=== PATIENT | male | born 1955 | race Caucasian/White ===

== ENCOUNTER 2024-06-15 08:03 | Outpatient (OUT) | payer MEDICARE, OTHER, SELFPAY ==
[2024-06-15 08:57] LABS: Basophils Absolute Auto 0.1 10^3/uL (0.0-0.1); Basophils Percent Auto 0.9 % (0.2-2.0); Eosinophils Absolute Auto 0.2 10^3/uL (0.0-0.7); Eosinophils Percent Auto 4.2 % (0.9-7.0); Hematocrit 41.7 % (42.0-54.0); Hemoglobin 14.3 g/dL (14.0-18.0); Immature Granulocytes Abs Auto 0.01 10^3/uL (0.00-0.03); Immature Granulocytes Pct Auto 0.2 % (0.0-0.5); Lymphocytes Absolute Auto 2.3 10^3/uL (1.2-3.8); Lymphocytes Percent Auto 39.6 % (20.5-60.0); Mean Corpuscular HGB Conc 34.3 g/dL (29.9-35.2); Mean Corpuscular Hemoglobin 31.5 pg (25.9-34.0); Mean Corpuscular Volume 91.9 fL (80.0-94.0); Mean Platelet Volume 10.2 fL (9.5-13.5); Monocytes Absolute Auto 0.3 10^3/uL (0.3-0.8); Monocytes Percent Auto 4.9 % (1.7-12.0); Neutrophils Absolute Auto 2.9 10^3/uL (1.4-6.5); Neutrophils Percent Auto 50.2 % (43.0-75.0); Platelet Count 211 10^3/uL (150-450); Red Blood Count 4.54 10^6/uL (4.70-6.10); Red Cell Distribution Width 11.9 % (11.0-15.0); White Blood Count 5.7 10^3/uL (4.0-11.0)
[2024-06-15 11:19] LABS: Alanine Aminotransferase 29 U/L (16-63); Albumin Globulin Ratio 1.1; Albumin Level 3.6 g/dL (3.4-5.0); Alkaline Phosphatase 74 U/L (46-116); Anion Gap 12.5; Aspartate Amino Transferase 21 U/L (15-37); BUN Creatinine Ratio 18.7; Bilirubin Total 0.7 mg/dL (0.2-1.0); Calcium 9.1 mg/dL (8.5-10.1); Carbon Dioxide 26.9 mmol/L (21.0-32.0); Chloride 106 mmol/L (98-107); Chol HDL Ratio 4.1; Cholesterol 217 mg/dL (<=200); Estimated GFR (African America >60 (>=60 mL/min/1.73m^2); Estimated GFR (Non-African Ame 51 (>=60 mL/min/1.73m^2); Globulin 3.2 g/dL; Glucose 101 mg/dL (74-106); HDL Cholesterol 53 mg/dL (40-60); Potassium 4.4 mmol/L (3.5-5.1); Sodium 141 mmol/L (136-145); Total Protein 6.8 g/dL (6.4-8.2); Triglycerides 110 mg/dL (<=150)
[2024-06-16 04:08] LABS: PSA, Free <0.02 ng/mL; Prostate Specific Ag <0.1 ng/mL (0.0-4.0)
== END 2024-06-15 08:04 | disposition home or self-care (01) ==
LOC: LAB 08:10
PROVIDERS: PCP Family Medicine; Visit Provider Family Medicine
DX: M51.26 Other intervertebral disc displacement, lumbar region (principal); C61 Malignant neoplasm of prostate; N52.9 Male erectile dysfunction, unspecified
CPT/HCPCS: 36415; 80053; 80061; 83036; 84153; 84154; 84436; 84443; 84481; 85025

== ENCOUNTER 2024-06-17 07:50 | Outpatient (REF) | payer MEDICARE, OTHER, SELFPAY ==
--- OUTSIDE RECORDS SUMMARY | 2024-06-17 07:53 | XMS_ITS | CCD ---
Author Organization [facility] Inform ion Partnership [facility] Care Team Providers Care Conductor Pullman Name Role Phone Eugenia Grimes Unavailable DR MEHDI MEDEROS Attending Unavailable DR MEHDI MEDEROS Consulting Unavailable DR MEHDI MEDEROS Primary Care Unavailable DR MEHDI MEDEROS Admitting Unavailable Medications Current Medications Medication Drug Class(es) Dates Sig (Normalized) Sig (Original) predniSONE 20 mg oral tablet (1 source) Start: 03-21-2022 take 1 tablet by mouth every twelve hours predniSONE 20 MG 1 tablet Orally 2 times a day for 5 day(s) Feb, Active Completed/Discontinued Medications Medication Drug Class(es) Dates Sig (Normalized) Sig (Original) triamcinolone acetonide 40 mg/ml injectable suspension (1 source) Corticosteroid Start: 03-21-2022 Kenalog-40 Feb, 40 mg Problems Active Problems Problem Classification Problem Date Documented Da te Episodic/Chronic Cancer of prostate (1 source) Malignant neoplasm of prostate; Translations: [MALIGNANT NEOPLASM OF PROSTATE] Onset: 08-02-2022 Chronic Diabetes mellitus without complication (1 source) Other abnormal glucose; Translations: [OTHER ABNORMAL GLUCOSE] Onset: 08-02-2022 Episodic Disorders of lipid metabolism (1 source) Hyperlipidemia, unspecified; Translations: [HYPERLIPIDEMIA UNSPECIFIED] Onset: 08-02-2022 Chronic Heart valve disorders (4 sources) Cardiac murmur, unspecified; Translations: [CARDIAC MURMUR UNSPECIFIED] Onset: 07-27-2022 Episodic Past or Other Problems Problem Classification Problem Date Documented Da te Episodic/Chronic Allergic reactions (1 source) Allergic contact dermatitis due to plants, except food Onset: 03-21-2022 Resolved: 03-21-2022 Episodic Results Test Name Value Interpretation Reference Range Facility PSA, FREE AND TOTAL RATIOon 07-28-2022 % Free PSA UPTCAL Normal [facility] Comment on above: Result Comment: Unab le to calculate result since non-numeric result obtained for component test. The table below lists the probability of prostate cancer for men with non-suspicious KATEY results and total PSA between 4 and 10 ng/mL, by patient age (Sal et al, LIAN 1998, [id number]:1542). % Free PSA 50-64 yr 65-75 yr 0.00-10.00% 56% 55% 10.01-15.00% 24% 35% 15.01-20.00% 17% 23% 20.01-25.00% 10% 20% >25.00% 5% 9% Please note: Sal et al did not make specific recommendations regarding the use of percent free PSA for any other population of men. Performed By: #### P SAFREE #### [facility] [address] [place] [address] Dr. Janae Leslie Prostate specific Ag [Mass/Vol] ng/mL Normal 0.0-4.0 [facility] Comment on above: Result Comment: Tila ballesteros ECLIA methodology. . According to the [employer], Serum PSA should decrease and remain at undetectable levels after radical prostatectomy. The AUA defines biochemical recurrence as an initial PSA value 0.2 ng/mL or greater followed by a subsequent confirmatory PSA value 0.2 ng/mL or greater. Values obtained with different assay methods or kits cannot be used interchangeably. Results cannot be interpreted as absolute evidence of the presence or absence of malignant disease. Performed By: #### P SAFREE #### [facility] [address] [place] [address] Dr. Janae Leslie PSA, Free <0.02 Normal N/A [facility] Comment on above: Result Comment: Roch e ECLIA methodology. Performed By: #### P SAFREE #### [facility] [address] [address] [address] Janae Leslie CBC AUTO DIFFon 07-27-2022 BASO # 0.0 103/ul Normal 0.0-0.1 [facility] Comment on above: Performed By: #### C BC #### [facility] [address] [address] [address] Janae Leslie Basophils/100 WBC (Bld) 0.6 % Normal 0.2-2.0 [facility] Comment on above: Performed By: #### C BC #### [facility] [address] [place] [address] Dr. Janae Leslie EO # 0.2 103/ul Normal 0.0-0.7 [facility] Comment on above: Performed By: #### C BC #### [facility] [address] [place] [address] Dr. Janae Leslie Eosinophils/100 WBC (Bld) 4.1 % Normal 0.9-7.0 [facility] Comment on above: Performed By: #### C BC #### [facility] [address] [place] [address] Dr. Janae Leslie Erythrocyte distribution width (RBC) [Ratio] 11.9 % Normal 11.0-15.0 [facility] Comment on above: Performed By: #### C BC #### [facility] [address] [place] [address] Dr. Janae Leslie Hematocrit (Bld) [Volume fraction] 42.0 % Normal 42.0-54.0 [facility] Comment on above: Performed By: #### C BC #### [facility] [address] [place] [address] Dr. Janae Leslie Hemoglobin (Bld) [Mass/Vol] 14.3 g/dL Normal 14.0-18.0 [facility] Comment on above: Performed By: #### C BC #### [facility] [address] [place] [address] Dr. Janae Leslie IG # 0.01 10e3/ul Normal 0.00-0.03 [facility] Comment on above: Performed By: #### C BC #### [facility] [address] [place] [address] Dr. Janae Leslie IG % 0.2 % Normal 0.0-0.5 [facility] Comment on above: Performed By: #### C BC #### [facility] [address] [place] [address] Dr. Janae Leslie LYMPH # 2.3 103/ul Normal 1.2-3.8 [facility] Comment on above: Performed By: #### C BC #### [facility] [address] [place] [address] Dr. Janae Leslie Lymphocytes/100 WBC (Bld) 41.7 % Normal 20.5-60.0 [facility] Comment on above: Performed By: #### C BC #### [facility] [address] [place] [address] Dr. Janae Leslie MANUAL DIFF REQ NO Normal [facility] Comment on above: Performed By: #### C BC #### [facility] [address] [place] [address] Dr. Janae Leslie MCH (RBC) [Entitic mass] 31.2 pg Normal 25.9-34.0 [facility] Comment on above: Performed By: #### C BC #### [facility] [address] [place] [address] Dr. Janae Leslie MCHC (RBC) [Mass/Vol] 34.0 g/dL Normal 29.9-35.2 [facility] Comment on above: Performed By: #### C BC #### [facility] [address] [place] [address] Dr. Janae Leslie MCV (RBC) [Entitic vol] 91.7 fL Normal 80.0-94.0 [facility] Comment on above: Performed By: #### C BC #### [facility] [address] [place] [address] Dr. Janae Leslie MONO # 0.4 103/ul Normal 0.3-0.8 [facility] Comment on above: Performed By: #### C BC #### [facility] [address] [place] [address] Dr. Janae Leslie Monocytes/100 WBC (Bld) 6.5 % Normal 1.7-12.0 [facility] Comment on above: Performed By: #### C BC #### [facility] [address] [place] [address] Dr. Janae Leslie NEUT # 2.5 103/ul Normal 1.4-6.5 [facility] Comment on above: Performed By: #### C BC #### [facility] [address] [address] [address] Janae Leslie Neutrophils/100 WBC (Bld) 46.9 % Normal 43.0-75.0 [facility] Comment on above: Performed By: #### C BC #### [facility] [address] [address] [address] Janae Leslie Platelet mean volume (Bld) [Entitic vol] 10.3 fL Normal 9.5-13.5 [facility] Comment on above: Performed By: #### C BC #### [facility] [address] [address] [address] Janae Leslie PLT 205 103/ul Normal 150-450 [facility] Comment on above: Performed By: #### C BC #### [facility] [address] [place] [address] Dr. Janae Leslie RBC 4.58 106/ul Critically low 4.70-6.10 [facility] Comment on above: Performed By: #### C BC #### [facility] [address] [address] [address] Janae Leslie WBC 5.4 103/ul Normal 4.0-11.0 [facility] Comment on above: Performed By: #### C BC #### [facility] [address] [place] [address] Dr. Janae Leslie GLYCOHEMOGLOBIN A1Con 2021 ADA RECOMMENDATION SEE BELOW Normal [facility] Comment on above: Result Comment: ADA RECOMMENDED LIMIT 4.0 - 6.0 ADA THERAPEUTIC TARGET < 7.0 ACTION SUGGESTED > 7.0 Performed By: #### A 1C #### [facility] [address] [address] [address] Janae Leslie Glucose [Mass/Vol] 108 mg/dL Normal [facility] Comment on above: Performed By: #### A 1C #### [facility] [address] [place] [address] Dr. Janae Leslie HbA1c (Bld) [Mass fraction] 5.4 % Normal 4.5-6.2 [facility] Comment on above: Performed By: #### A 1C #### [facility] [address] [address] [address] Janae Leslie LIPID PROFILEon 07-27-2022 CHOL-HDL RATIO NORM SEE BELOW Normal [facility] Comment on above: Result Comment: 3.3 - 4.4 LOW RISK 4.4 - 7.1 AVERAGE RISK 7.1 - 11.0 MODERATE RISK >11.0 HIGH RISK Performed By: #### L IPID, CMP #### [facility] [address] [address] [address] Janae Leslie Cholesterol [Mass/Vol] 190 mg/dL Normal <=200 [facility] Comment on above: Performed By: #### L IPID, CMP #### [facility] [address] [address] [address] Janae Leslie Cholesterol in HDL [Mass/Vol] 47 mg/dL Normal 40-60 [facility] Comment on above: Performed By: #### L IPID, CMP #### [facility] [address] [address] [address] Janae Leslie Cholesterol in LDL [Mass/Vol] 118.2 mg/dL Normal [facility] Comment on above: Performed By: #### L IPID, CMP #### [facility] [address] [address] [address] Janae Leslie Cholesterol.total/Ch olesterol in HDL [Mass ratio] 4.0 {ratio} Normal [facility] Comment on above: Performed By: #### L IPID, CMP #### [facility] [address] [address] [address] Janae Leslie HDL NORMAL > or = 60 mg/dl - LO W CARDIOVASCULAR RISK <40 mg/dl - HIGH CARDIOVASCULAR RISK Normal [facility] Comment on above: Performed By: #### L IPID, CMP #### [facility] [address] [address] [address] Janae Lelsie LDL CALC NORMAL SEE BELOW Normal [facility] Comment on above: Result Comment: <100 mg/dl OPTIMAL 100 - 129 mg/dl NEAR OR ABOVE OPTIMAL 130 - 159 mg/dl BORDERLINE HIGH 160 - 189 mg/dl HIGH >190 mg/dl VERY HIGH Performed By: #### L IPID, CMP #### [facility] [address] [place] [address] Dr. Janae Leslie Triglyceride [Mass/Vol] 124 mg/dL Normal <=150 [facility] Comment on above: Performed By: #### L IPID, CMP #### [facility] [address] [place] [address] Dr. Janae Leslie VLDL CALC 24.8 mg/dL Normal [facility] Comment on above: Performed By: #### L IPID, CMP #### [facility] [address] [place] [address] Dr. Janae Leslie PROF 14(COMP METB)on 022 Albumin [Mass/Vol] 3.6 g/dL Normal 3.4-5.0 [facility] Comment on above: Performed By: #### L IPID, CMP #### [facility] [address] [place] [address] Dr. Janae Leslie Albumin/Globulin [Mass ratio] 1.0 {ratio} Normal [facility] Comment on above: Performed By: #### L IPID, CMP #### [facility] [address] [place] [address] Dr. Janae Leslie ALP [Catalytic activity/Vol] 85 U/L Normal 46-116 [facility] Comment on above: Performed By: #### L IPID, CMP #### [facility] [address] [place] [address] Dr. Janae Leslie ALT [Catalytic activity/Vol] 20 U/L Normal 16-63 [facility] Comment on above: Performed By: #### L IPID, CMP #### [facility] [address] [place] [address] Dr. Janae Leslie Anion gap [Moles/Vol] 8.6 mmol/L Normal [facility] Comment on above: Performed By: #### L IPID, CMP #### [facility] [address] [place] [address] Dr. Janae Leslie AST [Catalytic activity/Vol] 15 U/L Normal 15-37 [facility] Comment on above: Performed By: #### L IPID, CMP #### [facility] [address] [place] [address] Dr. Janae Leslie Bilirubin [Mass/Vol] 0.4 mg/dL Normal 0.2-1.0 [facility] Comment on above: Performed By: #### L IPID, CMP #### [facility] [address] [place] [address] Dr. Janae Leslie Calcium [Mass/Vol] 8.6 mg/dL Normal 8.5-10.1 [facility] Comment on above: Performed By: #### L IPID, CMP #### [facility] [address] [place] [address] Dr. Janae Leslie Chloride [Moles/Vol] 103 mmol/L Normal 98-107 [facility] Comment on above: Performed By: #### L IPID, CMP #### [facility] [address] [place] [address] Dr. Janae Leslie CO2 [Moles/Vol] 33.6 mmol/L Critically high 21.0-32.0 [facility] Comment on above: Performed By: #### L IPID, CMP #### [facility] [address] [place] [address] Dr. Janae Leslie Creatinine [Mass/Vol] 1.26 mg/dL Normal 0.70-1.30 [facility] Comment on above: Performed By: #### L IPID, CMP #### [facility] [address] [place] [address] Dr. Janae Leslie EGFR-AF [place] >60 Normal >=60 [facility] Comment on above: Performed By: #### L IPID, CMP #### [facility] [address] [place] [address] Dr. Janae Leslie EGFR-NON AF [place] 57 mL/min/1.73m2 Critically low >=60 [facility] Comment on above: Performed By: #### L IPID, CMP #### [facility] [address] [place] [address] Dr. Janae Leslie Globulin (S) [Mass/Vol] 3.6 g/dL Normal [facility] Comment on above: Performed By: #### L IPID, CMP #### [facility] [address] [place] [address] Dr. Janae Leslie Glucose [Mass/Vol] 95 mg/dL Normal 74-106 [facility] Comment on above: Performed By: #### L IPID, CMP #### [facility] [address] [address] [address] Janae Leslie Potassium [Moles/Vol] 4.2 mmol/L Normal 3.5-5.1 [facility] Comment on above: Performed By: #### L IPID, CMP #### [facility] [address] [place] [address] Dr. Janae Leslie Protein [Mass/Vol] 7.2 g/dL Normal 6.4-8.2 [facility] Comment on above: Performed By: #### L IPID, CMP #### [facility] [address] [place] [address] Dr. Janae Leslie Sodium [Moles/Vol] 141 mmol/L Normal 136-145 [facility] Comment on above: Performed By: #### L IPID, CMP #### [facility] [address] [place] [address] Dr. Janae Leslie Urea nitrogen [Mass/Vol] 23.0 mg/dL Critically high 7.0-18.0 [facility] Comment on above: Performed By: #### L IPID, CMP #### [facility] [address] [place] [address] Dr. Janae Leslie Urea nitrogen/Creatinine [Mass ratio] 18.3 mg/mg Normal [facility] Comment on above: Performed By: #### L IPID, CMP #### [facility] [address] [place] [address] Dr. Janae Leslie XR hand LT min 3V*on 022 XR hand LT min 3V* [facility] [place] [address] XRay Report Signed Patient: Edison Valdez MR#: [id number] 5 : 1955 Acct:[id number] Age/Sex: 66 / M ADM Date: 02/18/22 Loc: XDUCLY Room: Type: [facility] Attending Dr: Eugenia NEGRON Copies to: JAMIL Irvin Ordering Provider: JAMIL Irvin Date of Service: 02/18/22 XR/XR hand LT min 3V*: Left hand pain XR hand LT min 3V* 02/18/2022 9:34 AM SIGNS AND SYMPTOMS: Pain in left hand after hyperextension injury PROTOCOL: Frontal, lateral, and oblique radiographs of the left hand COMPARISON: None FINDINGS: There is mild to moderate narrowing of the joint spaces throughout, greatest in the metacarpophalangeal junctions of the first through third digits. There is no evidence of acute fracture or dislocation. There is soft tissue swelling greatest over the dorsum of the metacarpophalangeal junctions. XR/XR hand LT min 3V* IMPRESSION: No fracture or dislocation. Degenerative changes are noted, greatest in the metacarpophalangeal junctions of the first through third digit suggesting underlying rheumatoid arthritis. There is soft tissue swelling over the dorsum of the hand greatest at the metatarsophalangeal junctions. Impression dictated by: Edu Bowers M.D.02/18/2022 10:07 AM Dictation Location: [place] [address] Transcribed By: [facility] 02/18/22 1007 Dictated By: Edu Bowers II, MD 02/18/22 1002 Signed By: 02/18/22 1007 [facility] Vital Signs Date Time Vital Sign Value Performing Clinician Facility 03-21-2022 17:00-0400 Body height 175.26 cm Eugenia Grimes Other [facility] Other 03-21-2022 17:00-0400 Body mass index (BMI) [Ratio] 27.97 kg/m2 Eugenia Grimes Other [facility] Other 03-21-2022 17:00-0400 Body temperature 97.3 [degF] Eugenia Grimes Other [facility] Other 03-21-2022 17:00-0400 Body weight 85.91 kg Eugenia Grimes Other [facility] Other 03-21-2022 17:00-0400 Diastolic blood pressure 78 mm[Hg] Eugenia Grimes Other [facility] Other 03-21-2022 17:00-0400 Respiratory rate 18 /min Eugenia Grimes Other [facility] Other 03-21-2022 17:00-0400 SaO2% (BldA) [Mass fraction] 97 % Eugenia Grimes Other [facility] Other 03-21-2022 17:00-0400 Systolic blood pressure 112 mm[Hg] Eugenia Grimes Other [facility] Other Encounters Encounter Date Encounter Type Care Provider Facility Start: 07-27-2022 End: 07-28-[address] MEHDI MEDEROS Facility: Start: 03-21-2022 End: 03-21-2022 ambulatory Eugenia Grimes Other [facility] Other Start: 03-21-2022 Office outpatient vi sit 15 minutes Eugenia Grimes [facility] Payers Date Payer Category Payer Medicare [id number] 2.1 [id number] 1960 Unknown [id number] 2. [id number] 1955 Unknown [id number] Social History Date Type Detail Facility Sex Assigned At [facility] Other Evaluation note 03-21-2022 Note Date & Type Note Facility 03-21-2022 Evaluation note Encounter Date Diagnosis Assessment Notes Feb, Poison melanie dermatitis (ICD-10 - L23.7) Poison melanie allergy home care material was printed Drink plenty fluids, get plenty of rest. Take the prednisone as prescribed until gone. Take Benadryl as needed for itching. Apply calamine lotion to the rash on your right forearm. Apply antibiotic ointment to the wound on the left hand daily. Follow-up with your family physician if no improvement in 2 to 3 days. Wash your bedding every day for the next 2 to 3 days. [facility] Other History general Narrative - Reported Note Date & Type Note Facility History general Narrative - Reported Type Surgical History prostate Surgical History back surgeries Surgical History hemorrhoidectomy Surgical History bilateral shoulders Surgical History LASIK Hospitalization History see above [facility] Other Summary Purpose Family History No Family History Records FoundNo Family History Records Found Advance Directives No Advanced Directives Records FoundNo Advanced Directives Records Found Additional Source Comments (unrecognized sect ion and content) No Status Records FoundNo Status Records Found INFORMATION SOURCE (unrecogn ized section and content) DATE CREATED AUTHOR 02/22/2022 [facility] DATE CREATED AUTHOR AUTHOR'S ORGANIZ ATION 08/03/2022 [facility] REASON FOR VISIT (unrecogniz ed section and content) RASH, ITCHING, POSS POISON I VY FOR RECORDS PERTAINING TO PATIENTS WHO ARE OR HAVE BEEN ENROLLED IN A CHEMICAL DEPENDENCY/SUBSTANCEABUSE PROGRAM, SOME INFORMATION MAY BE OMITTED. This clinical summary was aggregated from multiple sources. Caution should be exercised in using it in the provision of clinical care. This summary normalizes information from multiple sources, and as a consequence, information in this document may materially change the coding, format and clinical context of patient data. In addition, data may be omitted in some cases. CLINICAL DECISIONS SHOULD BE BASED ON THE PRIMARY CLINICAL RECORDS. [facility] [employer] [facility]. provides no warranty or guarantee of the accuracy or completeness of information in this document.
[2024-06-17 08:17] LABS: Internal Control Within Normal Limits; Occult Blood Positive
== END 2024-06-17 07:51 | disposition home or self-care (01) ==
LOC: LAB 07:50
PROVIDERS: PCP Family Medicine; Visit Provider Family Medicine
DX: M51.26 Other intervertebral disc displacement, lumbar region (principal); C61 Malignant neoplasm of prostate; N52.9 Male erectile dysfunction, unspecified
CPT/HCPCS: G0328

== ENCOUNTER 2024-09-09 08:13 | Outpatient (OUT) | payer OTHER, SELFPAY | END 2024-09-09 08:14 | disposition home or self-care (01) | LOC: PST 08:13 | PROVIDERS: PCP Family Medicine; Visit Provider Surgery | DX: Z01.818 Encounter for other preprocedural examination (principal); R19.5 Other fecal abnormalities; Z12.11 Encounter for screening for malignant neoplasm of colon ==

== ENCOUNTER 2024-10-07 09:55 | Day surgery (SDC) | payer OTHER, SELFPAY ==
--- NOTE | 2024-10-07 | OP_ITS ---
OPERATION DATE: 10/07/2024 PREOPERATIVE DIAGNOSIS: Positive fecal occult blood test. POSTOPERATIVE DIAGNOSIS: Moderate sigmoid diverticulosis. PROCEDURE: Colonoscopy to cecum. SURGEON: Maxime Butt M.D. ANESTHESIA: Monitored anesthesia care. ESTIMATED BLOOD LOSS: Zero. INDICATIONS AND CONSENT: Patient is a 69-year-old male with recent positive fecal occult blood test. Indications, risks, benefits, alternatives of proceeding with colonoscopy were explained extensively to the patient, including the risks of bleeding, colon perforation or anesthetic complications. All of his questions were answered. Informed consent was obtained. PROCEDURE: Patient brought to the operating room, placed in the left lateral decubitus position. Monitored anesthesia care was provided. Rectal exam was performed which showed no masses or blood. The scope was inserted into the anal canal. Under direct visualization was advanced. It was advanced to the cecum where cecal markings were clearly identified. There was noted to be a good prep. Upon withdrawal of the scope, mucosal surfaces were carefully examined. There were no mass lesions or polyps. No inflammatory changes or ulcerations. There was moderate sigmoid diverticulosis without inflammatory changes or scarring. The scope was retroflexed in the anal canal. There was no significant hemorrhoidal disease. The scope was then withdrawn. Patient tolerated procedure well, was sent to recovery room in good condition. patient should not require further screening colonoscopies. CC: Kamar Pires M.D. [facility]
[2024-10-07 10:14] VITALS: BP 106/70; PULSE 57; TEMP 36; O2SAT 99; BMI 26.3
[2024-10-07] MEDS: 0.9 % SODIUM CHLORIDE 500 ML 50 ML IV (10:25)
[2024-10-07 13:03] VITALS: BP 105/61; PULSE 64; O2SAT 97
[2024-10-07 13:18] VITALS: BP 107/61; PULSE 72; O2SAT 97
== END 2024-10-07 13:35 | disposition home or self-care (01) ==
PROVIDERS: PCP Family Medicine; Visit Provider Surgery
PROC: (CPT 811; principal; 2024-10-07 11:05)
DX: R19.5 Other fecal abnormalities (principal); K57.30 Diverticulosis of large intestine without perforation or abscess without bleeding; M48.061 Spinal stenosis, lumbar region without neurogenic claudication; Z85.46 Personal history of malignant neoplasm of prostate; Z90.79 Acquired absence of other genital organ(s); Z79.82 Long term (current) use of aspirin
CPT/HCPCS: 45378; J2704

== ENCOUNTER 2025-06-21 08:43 | Outpatient (OUT) | payer OTHER, SELFPAY ==
--- OUTSIDE RECORDS SUMMARY | 2025-06-09 10:15 | XMS_ITS | Encounter Summary ---
Author Organization [facility] Sys tem Address [id number] [address] [place] [address] Care Team Providers Care Risk Mgr Name Role Phone Kamar Pires MD Primary Care Provider [phone] Reason for Visit * ReasonCommentsCystFatty cyst, right middle back, self referred Encounter Details DateTypeDepartmentCare Team (Latest Contact Info)Vnlgfxgxqya74/15/2025 10:15 AM EDTOffice Visit [facility] [address] [phone] Maxime Jamison DO [address] [place] [address] Lipoma of torso (Primary Dx) Social History Tobacco UseTypesPacks/DayYears UsedDateSmoking Tobacco: NeverSmokeless Tobacco: NeverAUDIT-CAnswerDate RecordedQ1: How often do you have a drink containing alcohol?Monthly or less06/09/2025Q2: How many drinks containing alcohol do you have on a typical day when you are drinking?1 or Q3: How often do you have six or more drinks on one occasion?Never06/09/2025hildcareAnswerDate SgciseoaCzkuxzlzaUpwbwrw92/12/2019EmploymentAnswerDate RecordedEmploymentUnknown 02/04/2019Hunger ScreeningAnswerDate RecordedWithin the past 12 months we worried whether our food would run out before we got money to buy more.Never True06/09/2025Within the past 12 months the food we bought just didn't last and we didn't have money to get more.Never True06/09/2025Purpose - LifeAnswerDate RecordedPurpose and direction in ysybRacdold82/11/2021ex and Gender Information ValueDate RecordedSex Assigned at BirthNot on fileLegal FblXmxn9703/31/2015 11:31 AM EDTGender IdentityNot on fileSexual OrientationNot on filedocumented as of this encounter Last Filed Vital Signs Vital SignReadingTime TakenCommentsBlood Ysqxadvt914/7106/09/2025 10:01 AM EDT Vwdqb980506/09/2025 10:01 AM EDTTemperature--Respiratory Rate--Oxygen Saturation-- Inhaled Oxygen Concentration--Bobzjz08.3 kg (190 lb 3.2 oz)06/09/2025 10:01 AM RYXLmwyve790.7 cm (5' 8 )06/09/2025 10:01 AM EDTBody Mass Index28.9206/09/2025 10:01 AM EDTdocumented in this encounter Functional Status * AUDIT-C ScoreAnswerDate of CojipgeznpFkzkov670/15/2025 10:05 AM Yoly Goodwin CMA * QuestionAnswerDate of AssessmentAuthorQ1: How often do you have a drink containing alcohol?Monthly or less06/09/2025 10:05 AM Yoly Goodwin CMA Q2: How many drinks containing alcohol do you have on a typical day when you are drinking?1 or 10:05 AM Yoly Goodwin CMAQ3: How often do you have six or more drinks on one occasion?Never06/09/2025 10:05 AM Yoly Solares CMA documented as of this encounter Progress Notes * Maxime Jamison, - 06/09/2025 10:15 AM EDT Images from the original note were not included. [facility] [address] [place] [phone] CONSULT NOTE CHIEF COMPLAINT Chief Complaint Patient presents with Cyst Fatty cyst, right middle back, self referred Jovon Valdez is a 70 y.o. male who presents with complaints of a lump on the right thoracic area which has been present for many years but has been bothering him more when he is laying on his side sleeping. Someone also noticed it when he was working out at the gym recently. He has 2 other lumps 1 on the upper right thigh and while in the right posterior thigh that do not bother him. He wishes to see about having the 1 removed from the right lateral thorax. 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 MEDICATION Current Outpatient Medications: ascorbic acid, vitamin C, (vitamin C) 100 MG tablet, Take 100 mg by mouth daily., Disp: , Rfl: aspirin 81 mg, Take 1 tablet (81 mg total) by mouth in the morning., Disp: , Rfl: oxqkuobz-pmth-DH-calcium &mins (THERAGRAN-M) 9 mg iron-400 mcg tablet, Take 1 tablet by mouth daily., Disp: , Rfl: tiZANidine (ZANAFLEX) 2 mg tablet, Take 2 tablets (4 mg total) by mouth every 6 (six) hours as needed for muscle spasms. (Patient not taking: Reported on 06/09/2025), Disp: 21 tablet, Rfl: 0 ALLERGY No Known Allergies MEDICAL HISTORY Past Medical History: Diagnosis Date PONV (postoperative nausea and vomiting) SURGICAL HISTORY Past Surgical History: Procedure Laterality Date ARTHROSCOPY SHOULDER with rotator cuff repair and slap lesion repair and subacromnial decompressionRight 09/16/2018 Performed by Jr Karthikeyan Gupta DO at [facility] BACK SURGERY COLONOSCOPY 2024 PLANTAR FASCIECTOMY PROSTATECTOMY RECTAL SURGERY x2, hemmorrhoid and fissures SHOULDER SURGERY Left SOCIAL HISTORY Social History Socioeconomic History Marital status: Single Spouse name: Not on file Number of children: Not on file Years of education: Not on file Highest education level: Not on file Occupational History Not on file Tobacco Use Smoking status: Never Smokeless tobacco: Never Vaping Use Vaping status: Never Used Substance and Sexual Activity Alcohol use: Not on file Comment: occassional Drug use: No Sexual activity: Defer Other Topics Concern Not on file Social History Narrative Not on file Social Drivers of Health Financial Resource Strain: Not on file Food Insecurity: No Food Insecurity (06/09/2025) Hunger Screening Food Insecurity - Worry: Never True Food Insecurity - Inability: Never True Transportation Needs: Not on file Physical Activity: Not on file Stress: Not on file Social Connections: Not on file Interpersonal Safety: Not on file Housing Instability: Not on file FAMILY HISTORY Family History Problem Relation Age of Onset Dementia Mother Cancer Father prostate REVIEW OF SYSTEMS: Constitutional: Denies fevers, denies recent illnesses. Rest review of 10 systems negative except as above. PHYSICAL EXAM Constitutional: He is oriented to person, place, and time. Vital signs are normal. He appears well-developed and well-nourished. He appears younger than his stated age. On the right lateral thorax he has a protruding lipoma proximally 4-5 cm in size and on the right upper thigh as another 1 about 4-5 cm and another 1 in the right posterior thigh about 3-4 cm Neurological: He is alert and oriented to person, place, and time. Skin: Skin is warm, dry and intact. Psychiatric: He has a normal mood and affect. His speech is normal and behavior is normal. Cognition and memory are normal. IMPRESSION Lipomas right thorax right upper thigh and right posterior thigh ASSESSMENT & PLAN The lipoma in the right thorax is bothering him and he wishes to have it removed. Risks benefits alternatives to surgery could include infection bleeding pain scarring or recurrence. He will return to the office at a later date for excision under local anesthesia. Recovery would be a few weeks and stitches will be placed. He should refrain from heavy weightlifting afterwards for few weeks. Evaluation included: Preparing to see the patient (e.g., review of tests) Obtaining and/or reviewing separately obtained history Performing a medically appropriate examination and/or evaluation Counseling and educating the patient/family/caregiver Referring and communicating with other health critical care paramedic - Maxime Jamison DO 06/09/25 10:18 AM This note was created with the assistance of a speech recognition program. While intending to generate a timely document that accurately reflects the content of the visit, no guarantee can be provided that every grammatical or spelling mistake has been or will be identified or corrected. Thank you for your understanding. documented in this encounter Plan of Treatment DateTypeDepartmentCare Team (Latest Contact Info)Zyzhfknbygd57/03/2025 1:45 PM ESTOffice Visit [facility] [address] [address] Edith Chowdhury, CUSTOMER SERVICE CORRESPONDENCE CLERK-SURGERY CONSULTANT [address] [address] documented as of this encounter Visit Diagnoses Diagnosis Lipoma of torso- Primary documented in this encounter Care Teams Team MemberRelationshipSpecialtyStart DateEnd Date Kamar Pires MD PCP - GeneralFamily Medicine09/02/18documented as of this encounter
--- OUTSIDE RECORDS SUMMARY | 2025-06-16 10:45 | XMS_ITS | Encounter Summary ---
Author Organization [facility] Sys tem Address [facility] [address] [place] [address] Care Team Providers Care Contingents Supervisor Name Role Phone Kamar Pires MD Primary Care Provider [phone] Reason for Visit * ReasonCommentsOtherIn office excision of lipoma on right thorax Encounter Details DateTypeDepartmentCare Team (Latest Contact Info)Lgcnljfagpk37/22/2025 10:45 AM EDTOffice Visit [facility] [address] [phone] Maxime Jamison DO [address] [place] [address] Lipoma of torso (Primary Dx) Social History Tobacco UseTypesPacks/DayYears UsedDateSmoking Tobacco: NeverSmokeless Tobacco: NeverAUDIT-CAnswerDate RecordedQ1: How often do you have a drink containing alcohol?Monthly or less06/16/2025Q2: How many drinks containing alcohol do you have on a typical day when you are drinking?3 or Q3: How often do you have six or more drinks on one occasion?Never06/16/2025hildcareAnswerDate EhwvgbssKkqvqyqxdRgmksxk06/12/2019EmploymentAnswerDate RecordedEmploymentUnknown 02/04/2019Hunger ScreeningAnswerDate RecordedWithin the past 12 months we worried whether our food would run out before we got money to buy more.Never True06/09/2025Within the past 12 months the food we bought just didn't last and we didn't have money to get more.Never True06/09/2025Purpose - LifeAnswerDate RecordedPurpose and direction in jzkxRjwwkgs34/11/2021ex and Gender Information ValueDate RecordedSex Assigned at BirthNot on fileLegal NitLshr8703/31/2015 11:31 AM EDTGender IdentityNot on fileSexual OrientationNot on filedocumented as of this encounter Last Filed Vital Signs Vital SignReadingTime TakenCommentsBlood Vpblwita958/6906/16/2025 10:35 AM EDT Shvsg105006/16/2025 10:35 AM EDTTemperature--Respiratory Rate--Oxygen Saturation-- Inhaled Oxygen Concentration--Agbzkt76.5 kg (188 lb 6.4 oz)06/16/2025 10:35 AM HXAJcpzqz078.3 cm (5' 9 )06/16/2025 10:35 AM EDTBody Mass Index27.8206/16/2025 10:35 AM EDTdocumented in this encounter Functional Status * AUDIT-C ScoreAnswerDate of JqnzitqcciIxssjg183/22/2025 10:36 AM Zuleima Landaverde RMA * QuestionAnswerDate of AssessmentAuthorQ1: How often do you have a drink containing alcohol?Monthly or less06/16/2025 10:36 AM Zuleima Landaverde RMA Q2: How many drinks containing alcohol do you have on a typical day when you are drinking?3 or 410 10:36 AM Zuleima Landaverde RMAQ3: How often do you have six or more drinks on one occasion?Never06/16/2025 10:36 AM Zuleima Oates RMA documented as of this encounter Progress Notes * Maxime Jamison DO - 06/16/2025 10:45 AM EDT Images from the original note were not included. [facility] [address] [place] [phone] Progress NOTE CHIEF COMPLAINT Chief Complaint Patient presents with Other In office excision of lipoma on right thorax Jovon Valdez is a 70 y.o. male who presents for excision of lipoma in the right lower torso. MEDICATION Current Outpatient Medications: ascorbic acid, vitamin C, (vitamin C) 100 MG tablet, Take 100 mg by mouth daily., Disp: , Rfl: aspirin 81 mg, Take 1 tablet (81 mg total) by mouth in the morning., Disp: , Rfl: cdnbnyhg-tjcj-TK-calcium &mins (THERAGRAN-M) 9 mg iron-400 mcg tablet, Take 1 tablet by mouth daily., Disp: , Rfl: ALLERGY No Known Allergies MEDICAL HISTORY Past Medical History: Diagnosis Date PONV (postoperative nausea and vomiting) SURGICAL HISTORY Past Surgical History: Procedure Laterality Date ARTHROSCOPY SHOULDER with rotator cuff repair and slap lesion repair and subacromnial decompressionRight 09/16/2018 Performed by Jr Karthikeyan Gupta DO at [facility] BACK SURGERY COLONOSCOPY 2024 PLANTAR FASCIECTOMY PROSTATECTOMY [...] SYSTEMS: Constitutional: Denies fevers, denies recent illnesses. Negative except as above. PHYSICAL EXAM Constitutional: He is oriented to person, place, and time. Vital signs are normal. He appears well-developed and well-nourished. Right lower back torso is a palpable lipoma proximally 4-5 cm in size. Neurological: He is alert and oriented to person, place, and time. Skin: Skin is warm, dry and intact. Psychiatric: He has a normal mood and affect. His speech is normal and behavior is normal. Cognition and memory are normal. IMPRESSION Lipoma right thorax ASSESSMENT & PLAN Procedure: The area was prepped and draped usual sterile fashion. 1% xylocaine with epinephrine 10 cc used anesthetize the area after it was premarked. A transverse incision was made over the palpable lump in the lipoma was excised. The wound was closed with 3-0 Vicryl suture in interrupted fashionand skin was closed with 3-0 nylon suture in interrupted fashion. Sterile dressing was placed. Specimen was submitted to pathology. Specimen size was 3.5 cm Evaluation included: Preparing to see the patient (e.g., review of tests) Obtaining and/or reviewing separately obtained history Performing a medically appropriate examination and/or evaluation Counseling and educating the patient/family/caregiver Referring and communicating with other health neonatal intensive care nurse - Maxime Jamison DO 06/16/25 10:58 AM This note was created with the assistance of a speech recognition program. While intending to generate a timely document that accurately reflects the content of the visit, no guarantee can be provided that every grammatical or spelling mistake has been or will be identified or corrected. Thank you for your understanding. documented in this encounter Plan of Treatment DateTypeDepartmentCare Team (Latest Contact Info)Vggiokfvwal46/03/2025 1:45 PM ESTOffice Visit [facility] [address] [place] [phone] Edith Chowdhury, SOFTWARE INTEGRATOR-[facility] [address] [place] [address] NameTypePriorityAssociated DiagnosesDate/TimeSurgical PathologyPathology and CytologyRoutine Lipoma of torso 06/16/2025 11:07 AM EDTdocumented as of this encounter Visit Diagnoses Diagnosis Lipoma of torso- Primary documented in this encounter Care Teams Team MemberRelationshipSpecialtyStart DateEnd Date Kamar Pires MD PCP - GeneralFamily Medicine09/02/18documented as of this encounter
--- OUTSIDE RECORDS SUMMARY | 2025-06-21 08:46 | XMS_ITS | Clinical Summary ---
Author Organization [facility] Address [address] [place] [address] Care Team Providers Care Supervisor Bindery Name Role Phone Unavailable Primary Care Provider Unavailabl e Social History Tobacco UseTypesPacks/DayYears UsedDateSmoking Tobacco: Never AssessedSex and Gender InformationValueDate RecordedSex Assigned at BirthNot on fileLegal Sex Male11/07/2022 8:25 PM EDTGender IdentityNot on fileSexual OrientationNot on file Last Filed Vital Signs Vital SignReadingTime TakenCommentsBlood Pressure--Pulse--Temperature-- Respiratory Rate--Oxygen Saturation--Inhaled Oxygen Concentration--Qqdlpn21.9 kg (185 lb)05/01/2019 12:00 PM QULEdogob153.3 cm (5' 9 )05/01/2019 12:00 PM EDTBody Mass Index27.3209 12:00 PM EDT Plan of Treatment Not on file
--- OUTSIDE RECORDS SUMMARY | 2025-06-21 08:46 | XMS_ITS | Clinical Summary ---
Author Organization [facility] s tem Address [id number] [address] [place] [address] Care Team Providers Care Wood Chopper Name Role Phone Kamar Pires MD Primary Care Provider [phone] Allergies No known active allergies Medications MedicationSigDispense QuantityRefillsLast FilledStart DateEnd DateStatus ascorbic acid, vitamin C, (vitamin C) 100 MG tablet Take 100 mg by mouth daily.Active rowoxqtd-akoi-XA-calcium &mins (THERAGRAN-M) 9 mg iron-400 mcg tablet Take 1 tablet by mouth daily.Active aspirin 81 mg Take 1 tablet (81 mg total) by mouth in the morning.Active tiZANidine (ZANAFLEX) 2 mg tablet Take 2 tablets (4 mg total) by mouth every 6 (six) hours as needed for muscle spasms. 21 tablet Discontinued Active Problems No known active problems Encounters DateTypeDepartmentCare KkiaPohmlwslznx86/22/2025 10:45 AM EDTOffice Visit [facility] [address] [place] [phone] Maxime Jamison, DO Lipoma of torso (Primary Dx)06/16/20259390Ugssij33/15/2025 10:15 AM EDTOffice Visit [facility] [address] [place] [phone] Maxime Jamison, DO Lipoma of torso (Primary Dx)06/09/2025Travelfrom Last 3 Months Family History Medical HistoryRelationNameCommentsCancerFatherprostateDementiaMotherRelation NameStatusCommentsFatherDeceasedMotherAlive Social History Tobacco UseTypesPacks/DayYears UsedDateSmoking Tobacco: NeverSmokeless Tobacco: NeverAUDIT-CAnswerDate RecordedQ1: How often do you have a drink containing alcohol?Monthly or less06/16/2025Q2: How many drinks containing alcohol do you have on a typical day when you are drinking?3 or Q3: How often do you have six or more drinks on one occasion?Never06/16/2025hildcareAnswerDate NfovofjtEljjmpglxYxxiqyl58/12/2019EmploymentAnswerDate RecordedEmploymentUnknown 02/04/2019Hunger ScreeningAnswerDate RecordedWithin the past 12 months we worried whether our food would run out before we got money to buy more.Never True06/09/2025Within the past 12 months the food we bought just didn't last and we didn't have money to get more.Never True06/09/2025Purpose - LifeAnswerDate RecordedPurpose and direction in sxagXklykgb04/11/2021ex and Gender Information ValueDate RecordedSex Assigned at BirthNot on fileLegal IzqPyuj0303/31/2015 11:31 AM EDTGender IdentityNot on fileSexual OrientationNot on file Last Filed Vital Signs Vital SignReadingTime TakenCommentsBlood Vblozedm666/6906/16/2025 10:35 AM EDT Uznqt893306/16/2025 10:35 AM PYUHydtxzbrfld31.3 ??C (97.3 ??F)09/16/2018 2:40 PM ESTRespiratory Asbg661712/01/2024 12:49 PM EDTOxygen Alnapdgerq87%12/01/2024 11:00 AM EDTInhaled Oxygen Concentration--Tqapmf66.5 kg (188 lb 6.4 oz)06/16/2025 10:35 AM UIUExnabs204.3 cm (5' 9 )06/16/2025 10:35 AM EDTBody Mass Index27.82 06/16/2025 10:35 AM EDT Plan of Treatment DateTypeDepartmentCare Team (Latest Contact Info)Vdqsdhglrkl03/03/2025 1:45 PM ESTOffice Visit [facility] [address] [place] [phone] Edith Chowdhury, PAYROLL SERVICES ANALYST-VICE PRESIDENT OF SOFTWARE DEVELOPMENT [address] [place] [address] Health MaintenanceDue DateLast DoneCommentsDepression Kgfmvgket54/05/1966Adult BMI Follow Up Plan1972DTaP,Tdap and Td Vaccines (1 - Tdap)1973Zoster (Shingles) Vaccine (2 of 3)Fall Risk Wdybkylev34/05/2019 Influenza Wetpuxt29, 04/26/2016, 05/10/2015dult BMI Screening Tobacco Wklmtageu33 Medical Devices ImplantedTypeAreaManufacturerDevice IdentifierShelf Expiration DateModel / Serial / LotAnch Sut 2.9mm 2.3mm Shrt Med Uom Ea Only For Bill-Only - Sn/A - [id number] Implanted:Qty: 2 on 09/16/2018 by [facility]an Gupta Jr[facility]: MrrvkzqzDjbjrwl79/29/[id number] / N/A / [id number] Sut 4.75mm Swivelock Uom Ea Only For Bill Only - Sn/A - [id number] Implanted:Qty: 1 on 09/16/2018 by K[facility]keyan Gupta Jr[facility]: FujwkwryQzwstdh53/30/[id number] / N/A / [id number] Insurance * Guarantor: Jovon ValdezAccount TypeRelation to PatientDate of BirthPhone Billing AddressPersonal/IwwnuuNayj61/05/1955[address] [place] [address] Care Teams Team MemberRelationshipSpecialtyStart DateEnd Kamar Pires MD PCP - GeneralFamily Medicine09/02/18
--- OUTSIDE RECORDS SUMMARY | 2025-06-21 08:46 | XMS_ITS | Encounter Summary ---
Author Organization [facility] Address [id number] [address] [place] [address] Care Team Providers Care Clinical Science Liaison Name Role Phone Kamar Pires MD Primary Care Provider [phone] Encounter Details DateTypeDepartmentCare Team (Latest Contact Info)Lrqrvafnkzg61/22/2025Travel Social History Tobacco UseTypesPacks/DayYears UsedDateSmoking Tobacco: NeverSmokeless Tobacco: NeverAUDIT-CAnswerDate RecordedQ1: How often do you have a drink containing alcohol?Monthly or less06/16/2025Q2: How many drinks containing alcohol do you have on a typical day when you are drinking?3 or Q3: How often do you have six or more drinks on one occasion?Never06/16/2025hildcareAnswerDate PtkxnvmtMwltmfzbcXhhgtss43/12/2019EmploymentAnswerDate RecordedEmploymentUnknown 02/04/2019Hunger ScreeningAnswerDate RecordedWithin the past 12 months we worried whether our food would run out before we got money to buy more.Never True06/09/2025Within the past 12 months the food we bought just didn't last and we didn't have money to get more.Never True06/09/2025Purpose - LifeAnswerDate RecordedPurpose and direction in twayQhmuium14/11/2021ex and Gender Information ValueDate RecordedSex Assigned at BirthNot on fileLegal InwGhpf1803/31/2015 11:31 AM EDTGender IdentityNot on fileSexual OrientationNot on filedocumented as of this encounter Functional Status * AUDIT-C ScoreAnswerDate of OouolbpjufJjvczo757/22/2025 10:36 AM Zuleima Landaverde RMA * QuestionAnswerDate of AssessmentAuthorQ1: How often do you have a drink containing alcohol?Monthly or less06/16/2025 10:36 AM Zuleima Landaverde RMA Q2: How many drinks containing alcohol do you have on a typical day when you are drinking?3 or 10:36 AM Zuleima Landaverde RMAQ3: How often do you have six or more drinks on one occasion?Never06/16/2025 10:36 AM Zuleima Oates RMA documented as of this encounter Plan of Treatment DateTypeDepartmentCare Team (Latest Contact Info)Vjbiovkqudh39/03/2025 1:45 PM ESTOffice Visit [facility] [address] [place] [address] Edith Chowdhury, BIRD TENDER-[facility] [address] [place], [place] [phone] documented as of this encounter Visit Diagnoses Not on filedocumented in this encounter Care Teams Team MemberRelationshipSpecialtyStart DateEnd Kamar Pires MD PCP - GeneralFamily Medicine09/02/18documented as of this encounter
--- OUTSIDE RECORDS SUMMARY | 2025-06-21 08:47 | XMS_ITS | Patient Health Record ---
Author Organization [facility] in [place] Address [address] [place] [address] Care Team Providers Care Wallpaper Inspector And Shipper Name Role Phone Giovannichloe Filemon Primary Care Provider [phone] Allergies No Known Allergies Reason For Referral Diagnosis 1 Arm paresthesia, rig ht (R20.2) Referral Organization [facility] Referring Provider First Name Filemon Referring Provider Last Name Pranay Referring Provider Speciality Family Med icine Referred Provider [facility] Reha Minnie candelariat Referred Provider Specialty Physical The rapist Referral Priority Routine Medications Medication SIG (Take, Route, Frequency, Duration) Notes Start Date End Date Status Advil 200 MG 1 tablet as needed Orally every 6 hrs PRN ActiveValium 10 MG1 tablet as needed Orally once about 1 hour before procedure; Duration: 1 days5ActiveVitamin C 500 MGOrallyActiveViagra 100 MG1 tablet as needed Orally Once a day; Duration: 30 days3Active Multivitamin AdultOrallyActiveDiclofenac Sodium 75 MGTAKE 1 TABLET BY MOUTH TWICE DAILY NEEDED Oral; Duration: 30 DaysActiveAspir-81 81 MG1 tablet Orally Once a dayActive Immunizations Vaccine Route Administration Date Status Comme nts Flu, Fluzone (27010) 3 yrs+, multi-dose vial (9376-6402) Unknown 04/26/2016 Administered Social History Tobacco Use: Social History Observation Description Date Details (start date - stop date) Never Smoker NA - NA Tobacco Use/Smoking Question Answer Notes Patient is a nonsmoker AUDIT-C (Standard) Question Answer Notes Did you have a drink containing alcohol in the p ast year? No Uzhoqb6XovlmofxhnlzdwYoiauylz Problems Problem Type SNOMED Code ICD Code Onset Dates Problem Status W/U Status Risk Notes Problem Cervical radiculopathy (70212809) Cervica l radiculopathy (M54.12) ActiveconfirmedProblemSpinal stenosis of lumbar region (42809857)Spinal stenosis of lumbar region (M48.06)ActiveconfirmedProblemDisplacement of lumbar intervertebral disc without myelopathy (57752277)Lumbar discogenic pain syndrome (M51.26)ActiveconfirmedProblemAcquired spondylolisthesis (354718569) Spondylolisthesis at L4-L5 level (M43.16)ActiveconfirmedProblemSkin sensation disturbance (34005570)Arm paresthesia, right (R20.2)Activeconfirmed Vital Signs Blood pressure diastolic 72 mm Hg 01/01/2025 Efljuz78 in01/01/2025lood pressure cinuglbb205 mm Hg01/01/20258222Gbkswh006.0 lbs 01/01/2025BMI27.61 kg/m201/01/2025 Encounters Encounter Location Date Provider Diagnosis [facility] [address] [place] [address] 12/07/2024 Filemon Pires Arm paresthesia, rig ht R20.2 [facility] [address] [place] [address] 01/01/2025 Filemon Hoy Cervical radiculopat hy M54.12 [facility] [address] [place] [address] 12/07/2024 Filemon Davilay [facility] [place] [address] 12/14/2024Doug HoyArm paresthesia, right R20.2 [facility] [place] [address]/09/2025 Filemon PiresWell adult Z00.00 Assessments Encounter Date Diagnosis (ICD Code) Assessment Notes Treatment Notes Treatment Clinical Notes Section Notes 12/07/2024 Arm paresthesia, right (ICD-10 - R20.2) 01/01/2025ervical radiculopathy (ICD-10 - M54.12)5Arm paresthesia, right (ICD-10 - R20.2)06/03/2025Well adult (ICD-10 - Z00.00)5Back pain (ICD-10 - M54.9) Plan Of Treatment Pending Test Test Name Order Date CMP (COMPLETE METABOLIC PANEL) 4 HEMOGLOBIN A1C (GLYCO) 06/12/2024 LIPID PANEL (CHOL/TRIG/HDL/LDL) 06/12/20 24 CBC WITH DIFF 06/12/2024 PSA-FREE AND TOTAL 06/12/2024 CMP - Comprehensive Metabolic Panel 04/2025 CBC W/AUTO DIFF 06/03/2025 STOOL OCCULT BLOOD 06/03/2025 STOOL OCCULT BLOOD 06/12/2024 GLYCOHEMOGLOBIN A1C 06/03/2025 LIPID PROFILE 06/03/2025 MRI CSPINE WO CON 01/01/2025 THYROID PANEL (T4/TSH/FREE T3) THYROID PANEL (T4/TSH/FREE T3) 5 PSA, SCREENING 06/03/2025 Insurance Providers Payer Name Payer Address Payer Phone Subscriber Number Group Number Insured Name Patient Relationship to Insured Coverage Start Date Coverage End Date [facility] [address] [place] [id number] Marco Valdez - patient is the [place] [id number], [employer]Self - patient is the [id number] 2019 Medical (General) History Medical History History ICD Code History of Prostate Ca sinus infectiondiarrheabroken boneslumbar stenosisSurgical History Surgery Date(Month/Year) Prostatectomy shoulder surgery biceps cartilage tearrectal surgery x`s 38489ljvkhlxn cancer 2009shoulder ovnh5538mvki surgerylumbar surgery Dr. Sanjiv Shah's[address] Sunshine10/07/2024yst removal from back06/09/25Hospitalization History Reason Date(Month/Year) see above
--- OUTSIDE RECORDS SUMMARY | 2025-06-21 08:47 | XMS_ITS | Encounter Summary ---
[id number] [place] [address] Care Team Providers Care Sales Manager [place] Name Role Phone Kamar Pires MD Primary Care Provider [phone] Encounter Details DateTypeDepartmentCare Team (Latest Contact Info)Spxpriuqsva45/15/2025Travel Social History Tobacco UseTypesPacks/DayYears UsedDateSmoking Tobacco: NeverSmokeless Tobacco: NeverAUDIT-CAnswerDate RecordedQ1: How often do you have a drink containing alcohol?Monthly or less06/09/2025Q2: How many drinks containing alcohol do you have on a typical day when you are drinking?1 or Q3: How often do you have six or more drinks on one occasion?Never06/09/2025hildcareAnswerDate ZxwxerlbQygsjjwjrHmvzowo22/12/2019EmploymentAnswerDate RecordedEmploymentUnknown 02/04/2019Hunger ScreeningAnswerDate RecordedWithin the past 12 months we worried whether our food would run out before we got money to buy more.Never True06/09/2025Within the past 12 months the food we bought just didn't last and we didn't have money to get more.Never True06/09/2025Purpose - LifeAnswerDate RecordedPurpose and direction in mulsFgreotp49/11/2021ex and Gender Information ValueDate RecordedSex Assigned at BirthNot on fileLegal ZwxUjwj3203/31/2015 11:31 AM EDTGender IdentityNot on fileSexual OrientationNot on filedocumented as of this encounter Functional Status * AUDIT-C ScoreAnswerDate of VuszvrqeveSgvbga568/15/2025 10:05 AM Yoly Goodwin CMA * QuestionAnswerDate of AssessmentAuthorQ1: How often do you have a drink containing alcohol?Monthly or less06/09/2025 10:05 AM oYly Goodwin CMA Q2: How many drinks containing alcohol do you have on a typical day when you are drinking?1 or 10:05 AM Yoly Goodwin CMAQ3: How often do you have six or more drinks on one occasion?Never06/09/2025 10:05 AM Yoly Solares CMA documented as of this encounter Plan of Treatment DateTypeDepartmentCare Team (Latest Contact Info)Lhvdgttafxh40/03/2025 1:45 PM ESTOffice Visit [facility] [address] [place] [id number] Edith Chowdhury, MOCK UP ASSEMBLER-[facility] [address] [place] [address] documented as of this encounter Visit Diagnoses Not on filedocumented in this encounter Care Teams Team MemberRelationshipSpecialtyStart DateEnd Kamar Pires MD PCP - GeneralFamily Medicine09/02/18documented as of this encounter
[2025-06-21 09:36] LABS: Hematocrit 40.9 % (42.0-54.0); Hemoglobin 14.3 g/dL (14.0-18.0); Immature Granulocytes Abs Auto 0.01 10^3/uL (0.00-0.03); Immature Granulocytes Pct Auto 0.2 % (0.0-0.5); Lymphocytes Absolute Auto 2.1 10^3/uL (1.2-3.8); Mean Corpuscular HGB Conc 35.0 g/dL (29.9-35.2); Mean Corpuscular Hemoglobin 32.4 pg (25.9-34.0); Mean Corpuscular Volume 92.7 fL (80.0-94.0); Platelet Count 220 10^3/uL (150-450); Red Blood Count 4.41 10^6/uL (4.70-6.10); White Blood Count 5.9 10^3/uL (4.0-11.0)
[2025-06-21 10:19] LABS: Alanine Aminotransferase 50 U/L (16-63); Albumin Globulin Ratio 1.3; Albumin Level 3.8 g/dL (3.4-5.0); Alkaline Phosphatase 77 U/L (46-116); Anion Gap 9.1; Aspartate Amino Transferase 20 U/L (15-37); Blood Urea Nitrogen 24.0 mg/dL (7.0-18.0); Calcium 8.8 mg/dL (8.5-10.1); Carbon Dioxide 33.5 mmol/L (21.0-32.0); Chloride 105 mmol/L (98-107); Cholesterol 191 mg/dL (<=200); Estimated GFR (African America >60 (>=60 mL/min/1.73m^2); Estimated GFR (Non-African Ame >60 (>=60 mL/min/1.73m^2); Free T3 2.33 pg/mL (2.18-3.98); Globulin 3.0 g/dL; Glucose 101 mg/dL (74-106); HDL Cholesterol 47 mg/dL (40-60); Potassium 4.6 mmol/L (3.5-5.1); Sodium 143 mmol/L (136-145); Thyroid Stimulating Hormone 2.929 uIU/mL (0.358-3.740); Total Protein 6.8 g/dL (6.4-8.2); Triglycerides 115 mg/dL (<=150); VLDL CHOLESTEROL 23.0 mg/dL
== END 2025-06-21 08:44 | disposition home or self-care (01) ==
LOC: LAB 08:44
PROVIDERS: PCP Family Medicine; Visit Provider Family Medicine
DX: E78.5 Hyperlipidemia, unspecified (principal); Z12.5 Encounter for screening for malignant neoplasm of prostate; I10 Essential (primary) hypertension; D64.9 Anemia, unspecified; Z12.11 Encounter for screening for malignant neoplasm of colon; E03.9 Hypothyroidism, unspecified; R73.09 Other abnormal glucose
CPT/HCPCS: 36415; 80053; 80061; 83036; 84436; 84443; 84481; 85025; G0103